=== PATIENT | male | born 1965 | race Caucasian/White ===

== ENCOUNTER 2016-12-31 18:15 | Inpatient (IN) | payer OTHER ==
[~2016-12-31] VITALS: Ht 182.9 cm; Wt 116.8 kg
[~2016-12-31 18:15] MED LIST: ABILIFY2 MG; ABILIFY2 MG PO; ADULT LOW DOSE81 M1 PO; ADVAIR 250/501 DISK; ADVAIR 250/501 DISK IH; ADVAIR 500/501 DISK IH; ALLEGRA180 MG PO; AMOXICILLIN875 MG PO; ATORVASTATIN CA10 MG PO; AZITHROMYCIN250 MG; AZITHROMYCIN250 MG PO; Advair HFA 115/21 IH; BENZTROPINE ME0.5 MG; BENZTROPINE MESY1 MG; CELEBREX200 MG; CELEBREX200 MG PO; COGENTIN0.5 MG PO; COGENTIN1 MG PO; Chronulac,Cephulac,E PO; DIAZEPAM10 MG PO; DIAZEPAM5 MG PO; DURAGESIC100 MCG TD; ESCITALOPRAM TAB 20M; FEXOFENADINE H180 M1 PO; FEXOFENADINE H180 MG; FLOMAX0.4 MG PO; FLONASE16 G1 BOTH NARES; FLOVENT DISKUS1 DIS2 IH; FLUTICASONE PRO16 GM; Flomax PO; Flonase BOTH NARES; GARAMYCIN; GLIMEPIRIDE1 MG PO; INDOCIN50 MG PO; ISORDIL,SORBITR20 MG PO; LANSOPRAZOLE30 MG; LANSOPRAZOLE30 MG PO; LEXAPRO10 MG PO; LEXAPRO20 MG; LEXAPRO20 MG PO; LIDODERM 5% P1 PATCH; LIDODERM 5% P1 PATCH PO; LIDODERM 5% P1 PATCH TD; LISINOPRIL10 MG PO; LO-DOSE ASPIRIN81 M2 PO; LORCET 5-325 M1 EACH PO; METAXALONE800 MG; METHYLIN PO; METOCLOPRAMIDE10 MG PO; METOPROLOL SUCC25 MG PO; MEXILETINE HCL150 MG PO; MEXITIL150 MG; MEXITIL150 MG PO; MIRTAZAPINE15 MG PO; MOBIC15 MG PO; MULTIVITAMIN1 EACH PO; Mylicon,Mylanta Gas, PO; NASACORT AQ16.5 GM NS; NORCO 10/3251 TABLET PO; NORCO 5/3251 TABLET PO; NORVASC5 MG PO; NYSTATIN15 GM TP; OXYCODONE HCL5 MG PO; OXYCODONE-ACET1 EACH; OXYCODONE-APAP1 EACH PO; PERCOCET 10/1 TABLET PO; PERCOCET 5/31 TABLET PO; PERPHENAZINE8 MG; POTASSIUM CITR15 MEQ PO; PREDNISONE50 MG PO; PREVACID30 MG PO; PRINIVIL40 MG; PRINIVIL40 MG PO; PROAIR HFA8.5 GM IH; PROMETHAZINE HC25 M1 PO; PROVIGIL200 MG PO; Prevacid PO; Prinivil PO; Proventil,Ventolin H IH; RELPAX40 MG PO; REMERON30 M2 PO; RESTORIL30 MG PO; SAVELLA50 MG PO; SINGULAIR10 MG; SINGULAIR10 MG PO; SKELAXIN400 M1; SKELAXIN400 M1 PO; Singulair PO; Skelaxin PO; TAMSULOSIN HCL0.4 MG; THERAGRAN1 TABLET PO; TIZANIDINE HCL4 MG PO; TOPAMAX50 MG PO; TRICOR145 MG; TRICOR145 MG PO; TRICOR48 MG PO; TRILAFON8 M1 PO; TRILAFON8 MG PO; TRILIPIX45 MG PO; TROKENDI XR200 MG PO; TYLENOL WITH C1 EACH PO; VALIUM10 MG PO; VITAMIN B-6500 MG PO; VITAMIN B6100 MG PO; VITAMIN C1000 M3 PO; VITAMIN C1000 MG PO; VOLTAREN 1% GE100 GM PO; Vitamin B-6 PO; Vitamin C PO; WELLBUTRIN SR100 MG PO; Zestril,Prinivil PO; [UNRECOGNIZED DRUG - OTHER]; [UNRECOGNIZED DRUG - REMARK] NS
[2016-12-31 20:23] LABS: HEMATOCRIT 42.4 % (38.0-50.0); MCH 26.2 PG (29.0-34.0); MCHC 32.1 G/DL (30.0-36.0); MCV 81.7 FL (86-99); PLATELET COUNT 307 K/uL (156-360); RBC DIS.WIDTH-CV 13.8 % (11.8-14.6); RBC DIS.WIDTH-SD 40.4 % (39-53); RED BLOOD COUNT 5.19 M/uL (4.00-5.50); WHITE BLOOD COUNT 9.3 K/uL (4.1-10.2)
[2016-12-31 20:39] LABS: CHLORIDE 113 mEq/L (99-109); POTASSIUM 4.3 mEq/L (3.7-5.4); SODIUM 144 mEq/L (136-147)
[2016-12-31 20:41] LABS: GLUCOSE 102 mg/dL (70-99)
[2016-12-31 20:42] LABS: ANION GAP 11 MEQ/L (2-14)
[2016-12-31 20:44] LABS: GFR ESTIMATE (CALCULATED) > 59 mL/min/
[2016-12-31 20:45] LABS: UREA NITROGEN (BUN) 14 mg/dL (9-23)
[2016-12-31 21:42] LABS: TROP-I INTERPRETATION NEGATIVE; TROPONIN-I < 0.01 ng/mL (0.0-0.30)
[2016-12-31 23:13] LABS: ADD MIUA? YES; BILIRUBIN NEGATIVE; BLOOD NEGATIVE; COLOR YELLOW ((YELLOW)); GLUCOSE (STRIP) NEGATIVE; KETONES NEGATIVE; LEUKOCYTES NEGATIVE; NITRITE NEGATIVE; PROTEIN (STRIP) NEGATIVE; SPECIFIC GRAVITY 1.004 (1.000-1.030); UROBILINOGEN 0.2 MG/DL (0.2-1.0)
[2016-12-31 23:17] LABS: BACTERIA NONE SEEN /HPF; EPITHELIAL CELLS NONE SEEN /HPF; MUCUS NONE SEEN /LPF; RED BLOOD CELLS 0-5 /HPF (0-5); UCUL ADDED? NO; WHITE BLOOD CELLS NONE SEEN /HPF (0-5)
[2016-12-31] MEDS ORDERED: PREVACID30 MG PO (23:58)
[2017-01-01] MEDS ORDERED: LYRICA50 MG PO (00:02)
[2017-01-01 01:11] VITALS: BP 136/88
[2017-01-01 04:40] VITALS: BP 120/80
[2017-01-01 05:26] LABS: HEMATOCRIT 39.3 % (38.0-50.0); MCH 26.3 PG (29.0-34.0); MCHC 32.1 G/DL (30.0-36.0); MEAN PLAT.VOLUME 9.5 uM^3 (9.0-12.4); PLATELET COUNT 285 K/uL (156-360); RBC DIS.WIDTH-SD 41.1 % (39-53); RED BLOOD COUNT 4.79 M/uL (4.00-5.50)
[2017-01-01 05:41] LABS: TROP-I INTERPRETATION NEGATIVE; TROPONIN-I < 0.01 ng/mL (0.0-0.30)
[2017-01-01 05:58] LABS: ALKALINE PHOSPHATASE 61 IU/L (3-129); ANION GAP 9 MEQ/L (2-14); CHLORIDE 111 MEQ/L (99-109); GFR ESTIMATE (CALCULATED) > 59 mL/min/; GLUCOSE 137 mg/dL (70-99); SAMPLE HEMOLYSIS CHECK 1; SAMPLE ICTERIC CHECK 0; SAMPLE LIPEMIA CHECK 0; SODIUM 142 MEQ/L (136-147); TOTAL BILIRUBIN 0.4 MG/DL (0.0-1.0); UREA NITROGEN (BUN) 15 mg/dL (9-23)
[2017-01-01 05:59] LABS: POTASSIUM 3.6 MEQ/L (3.7-5.4)
[2017-01-01 08:45] VITALS: BP 100/65
[2017-01-01 11:21] LABS: TROP-I INTERPRETATION NEGATIVE; TROPONIN-I < 0.01 ng/mL (0.0-0.30)
[2017-01-01 11:46] VITALS: BP 101/60
[2017-01-01 13:08] LABS: PROTHROMBIN TIME 10.6 (9.2-11.2); PTT 25.6 (25-32)
== END 2017-01-01 19:45 | disposition home or self-care (01) | DRG 287 ==
LOC: EME → EDBD 18:15 → EDSEX 18:15 → 5WEST 23:49 → EDOF 01-01 00:29 → 5WEST 01-01 00:54
PROVIDERS: Emergency Medicine; Internal Medicine; Internal Medicine Cardiovascular Disease
PROC: B2151ZZ Fluoroscopy of Left Heart using Low Osmolar Contrast (ICD-10-PCS; principal; 2017-01-01)
PROC: B2111ZZ Fluoroscopy of Multiple Coronary Arteries using Low Osmolar Contrast (ICD-10-PCS; principal; 2017-01-01)
DX: R07.89 Other chest pain (principal); I50.30 Unspecified diastolic (congestive) heart failure; J44.9 Chronic obstructive pulmonary disease, unspecified; G89.29 Other chronic pain; F32.9 Major depressive disorder, single episode, unspecified; E11.9 Type 2 diabetes mellitus without complications; Z87.891 Personal history of nicotine dependence; F41.9 Anxiety disorder, unspecified; E78.00 Pure hypercholesterolemia, unspecified; Z87.820 Personal history of traumatic brain injury; R20.0 Anesthesia of skin; K21.9 Gastro-esophageal reflux disease without esophagitis; I25.2 Old myocardial infarction; I11.9 Hypertensive heart disease without heart failure; R33.9 Retention of urine, unspecified
CPT/HCPCS: 70450; 71020; 72125; 80048; 80053; 81003; 84484; 85027; 85610; 85730; 93005; 94640; 99202; 99281; 99285; C1769; C1887; G0378; J1644; J2250; J3010